=== PATIENT | male | born 1970 | race Caucasian/White ===

== ENCOUNTER 2017-05-18 17:38 | Emergency (ER) | payer MEDICAID ==
[2017-05-18] MEDS ORDERED: diphenhydrAMINE 50 MG/ML SDV IVPUSH ONE (18:06)
[2017-05-18] MEDS ORDERED: Sodium Chloride 0.9% 10 ML Syringe FLUSH PRN (18:06)
[2017-05-18] MEDS ORDERED: Prochlorperazine 10 MG/2 ML SDV IVPUSH ONE (18:06)
--- NOTE | 2017-05-18 18:23 | EDM.PDOC ---
ED HPI GENERAL MEDICAL PROBLEM - General Chief Complaint: Headache Stated Complaint: HEAD PAIN/UNABLE TO WALK Time Seen by Provider: 05/18/17 17:55 Source of Information: Reports: Patient, Family History Limitations: Reports: No Limitations - History of Present Illness INITIAL COMMENTS - FREE TEXT/NARRATIVE: The patient presents with right sided neck and head pain. This started about 1630 today after he got done eating at 1600. He also has burning pain to the right side of his face. He has had headaches like this before but never this bad. He denied nausea, vomiting, numbness or weakness. The patient was unsteady when moving to the bed. He has no fever, chills, cough, congestion or runny nose. He has no chest pain, abdominal pain or shortness of breath. Onset: Gradual Duration: Hour(s): (16:30) Location: Reports: Head, Face, Neck Quality: Reports: Sharp (and burning) Severity: Severe Improves with: Reports: None Worsens with: Reports: None Context: Reports: Activity (He just finished eating) Associated Symptoms: Reports: Headaches. Denies: Chest Pain, Fever/Chills, Nausea/Vomiting, Shortness of Breath Right Headache Pain Score (Numeric/FACES): 6 - Related Data Allergies Allergy/AdvReac Type Severity Reaction Status Date / Time No Known Allergies Allergy Verified 05/18/17 17:54 Home Meds: Home Meds Cyclobenzaprine [Flexeril] 10 mg PO TID PRN #20 tablet 05/18/17 [Rx] Hydrocodone/Acetaminophen [Hydrocodon-Acetaminophen 5-325] 1 - 2 each PO Q6HR PRN #20 tablet 05/18/17 [Rx] ED ROS GENERAL - Review of Systems Review Of Systems: See Below Constitutional: Reports: No Symptoms HEENT: Reports: No Symptoms Respiratory: Reports: No Symptoms Cardiovascular: Reports: No Symptoms Endocrine: Reports: No Symptoms GI/Abdominal: Reports: No Symptoms : Reports: No Symptoms Musculoskeletal: Reports: Neck Pain Skin: Reports: No Symptoms Neurological: Reports: Headache - Physical Exam Exam: See Below Exam Limited By: No Limitations General Appearance: Alert, No Apparent Distress Ears: Normal External Exam Nose: Normal Inspection Head Exam: Atraumatic, Normocephalic Neck: Normal Inspection Respiratory/Chest: No Respiratory Distress, Lungs Clear, Normal Breath Sounds Cardiovascular: Regular Rate, Rhythm, No Edema, No Murmur GI/Abdominal: Soft, Non-Tender, No Organomegaly, No Mass Neuro Exam (Abbreviated): Alert, Oriented, No Motor/Sensory Deficits, Other ( Normal finger to nose) Course - Vital Signs Last Recorded V/S: Last Vital Signs Temp 97.2 F 05/18/17 17:54 Pulse 48 L 05/18/17 17:54 Resp 16 05/18/17 17:54 BP 197/113 H 05/18/17 17:54 Pulse Ox 99 05/18/17 17:54 - Orders/Labs/Meds Orders: Active Orders 24 hr Category Date Time Status Peripheral IV Care [RC] . DIRECTED Care 05/18/17 18:06 Active Head wo Cont [CT] Stat Exams 05/18/17 18:05 Taken Ketorolac [Toradol] Med 05/18/17 19:29 Once 30 mg IVPUSH ONETIME ONE Sodium Chloride 0.9% [Saline Flush] Med 05/18/17 18:06 Active 10 ml FLUSH ASDIRECTED PRN Peripheral IV Insertion Adult [OM.PC] Routine Oth 05/18/17 18:06 Ordered Medication Orders Sodium Chloride (Saline Flush) 10 ml FLUSH ASDIRECTED PRN PRN Reason: Keep Vein Open Last Admin: 05/18/17 18:30 Dose: 10 ml Meds: Medications Generic Name Dose Route Start Last Admin Trade Name Freq PRN Reason Stop Dose Admin Sodium Chloride 10 ml 05/18/17 18:06 05/18/17 18:30 Saline Flush FLUSH 10 ml ASDIRECTED PRN Administration Keep Vein Open Discontinued Medications Generic Name Dose Route Start Last Admin Trade Name Freq PRN Reason Stop Dose Admin Diphenhydramine HCl 50 mg 05/18/17 18:06 05/18/17 18:29 Benadryl IVPUSH 05/18/17 18:07 50 mg ONETIME ONE Administration Hydromorphone HCl 0.5 mg 05/18/17 18:49 05/18/17 18:52 Dilaudid IVPUSH 05/18/17 18:50 0.5 mg ONETIME ONE Administration Hydromorphone HCl Confirm 05/18/17 18:55 05/18/17 18:54 Dilaudid Administered 05/18/17 18:56 Not Given Dose 0.5 mg .ROUTE .STK-MED ONE Prochlorperazine Edisylate 10 mg 05/18/17 18:06 05/18/17 18:29 Compazine IVPUSH 05/18/17 18:07 10 mg ONETIME ONE Administration - Re-Assessments/Exams Free Text/Narrative Re-Assessment/Exam: 05/18/17 18:25 I ordered an IV saline lock, compazine 10mg IV, benadryl 50mg IV and a CT of his head. 05/18/17 19:30 His pain was better until he went to CT and it came back. I ordered some dilaudid 1mg IV and that helped. The CT showed no acute intracranial hemorrhage or mass effect. Right occipital scalp hematoma. I asked the patient about the hematoma and he says he has had that for years. It maybe has gotten a little bigger. That is not where the pain is coming from. It appears to be coming from his neck. I will give him a dose of toradol here and a prescription for hydrocodone and flexeril. Departure - Departure Time of Disposition: 19:35 Disposition: Home, Self-Care 01 Condition: Good Clinical Impression: Tension-type headache - Discharge Information Prescriptions: Hydrocodone/Acetaminophen [Hydrocodon-Acetaminophen 5-325] 1 - 2 each PO Q6HR PRN #20 tablet PRN Reason: Pain Cyclobenzaprine [Flexeril] 10 mg PO TID PRN #20 tablet PRN Reason: Pain Referrals: Marilu Ramesh PA-C [[employer]] - 1 Week Forms: ED Department Discharge Additional Instructions: Take the flexeril and hydrocodone as needed for pain. You may also take an antiinflammatory such as motrin or aleve. Please return if the pain gets worse , if you develop numbness, weakness, nausea or vomiting. - My Orders Last 24 Hours: My Active Orders 05/18/17 18:05 Head wo Cont [CT] Stat 05/18/17 18:06 Peripheral IV Care [RC] . DIRECTED Sodium Chloride 0.9% [Saline Flush] 10 ml FLUSH ASDIRECTED PRN Peripheral IV Insertion Adult [OM.PC] Routine 05/18/17 19:29 Ketorolac [Toradol] 30 mg IVPUSH ONETIME ONE - Assessment/Plan Last 24 Hours: My Active Orders 05/18/17 18:05 Head wo Cont [CT] Stat 05/18/17 18:06 Peripheral IV Care [RC] . DIRECTED Sodium Chloride 0.9% [Saline Flush] 10 ml FLUSH ASDIRECTED PRN Peripheral IV Insertion Adult [OM.PC] Routine 05/18/17 19:29 Ketorolac [Toradol] 30 mg IVPUSH ONETIME ONE
[2017-05-18] MEDS ORDERED: HYDROmorphone 0.5 MG/0.5 ML Syringe IVPUSH ONE (18:49)
[2017-05-18] MEDS ORDERED: HYDROmorphone 0.5 MG/0.5 ML Syringe ONE (18:55)
[2017-05-18] MEDS ORDERED: Ketorolac 30 MG/ML SDV IVPUSH ONE (19:29)
--- NOTE | 2017-05-23 11:27 | CT ---
Head CT Technique: Multiple axial sections through the brain were obtained. Intravenous contrast was not utilized. Comparison: No prior study. Findings: Ventricles along with basal cisterns and sulci over the convexities are within normal limits for the patient's age. No abnormal parenchymal densities are seen. No evidence of intracranial hemorrhage. No midline shift or mass effect is seen. Hematoma seen within the right occipital scalp. No acute calvarial abnormality is seen. Diffuse mucosal thickening is seen within the maxillary and ethmoid sinuses. Air-fluid level is seen within the right maxillary sinus. Impression: 1. There is mucosal thickening within the ethmoid and maxillary sinuses with right sided air fluid level within the maxillary sinus. Uncertain if this is due to acute sinusitis and please correlate with the patient's symptoms. 2. Soft tissue hematoma within the right occipital scalp. 3. No acute intracranial abnormality is seen. Diagnostic code #3 I agree with preliminary report issued by [facility] ([facility] report finalized on 05/18/17, 8:04 PM Central Time)
== END 2017-05-18 19:49 | disposition home or self-care (01) ==
LOC: JD.ED 17:38
DX: G44.209 Tension-type headache, unspecified, not intractable (principal)
CPT/HCPCS: 70450; 96374; 96375; 99284; J0780; J1170; J1200; J1885; J7050

== ENCOUNTER 2017-05-19 19:00 | Emergency (ER) | payer MEDICAID ==
--- NOTE | 2017-05-19 19:17 | EDM.PDOC ---
ED HPI GENERAL MEDICAL PROBLEM - General Chief Complaint: Gastrointestinal Problem Stated Complaint: VOMMITING AND DIZZY UNABLE TO WALK Time Seen by Provider: 05/19/17 19:12 - History of Present Illness INITIAL COMMENTS - FREE TEXT/NARRATIVE: 46-year-old male presents emergency room with left sided leg weakness difficulty speaking nausea vomiting and generally not feeling well. Patient was seen here yesterday he had what seemed like a muscle tension headache this was treated his headache and his neck pain is better. However around 2 AM this morning the patient developed nausea vomiting and just generalized weakness he thinks might be a little worse in his left leg compared to his right leg hands are about the same 80s had some intermittent speech discrepancies and the patient has had some right-sided facial numbness comes and goes. The patient feels generally weak has a hard time walking if he tries to walk he has a tendency to want to fall. - Related Data Allergies Allergy/AdvReac Type Severity Reaction Status Date / Time No Known Allergies Allergy Verified 05/19/17 19:12 Home Meds: Home Meds Cyclobenzaprine [Flexeril] 10 mg PO TID PRN #20 tablet 05/18/17 [Rx] Hydrocodone/Acetaminophen [Hydrocodon-Acetaminophen 5-325] 1 - 2 each PO Q6HR PRN #20 tablet 05/18/17 [Rx] Past Medical History - Past Health History Medical/Surgical History: Denies Medical/Surgical History Psychiatric History: Reports: Addiction Other Psychiatric History: smokes cigarettes Social & Family History - Tobacco Use Smoking Status *Q: Current Every Day Smoker Years of Tobacco use: 30 Packs/Tins Daily: 1 - Caffeine Use Caffeine Use: Reports: Soda - Recreational Drug Use Recreational Drug Use: No ED ROS GENERAL - Review of Systems Review Of Systems: See Below Constitutional: Reports: Malaise, Weakness HEENT: Reports: No Symptoms Respiratory: Reports: No Symptoms Cardiovascular: Reports: No Symptoms GI/Abdominal: Reports: Nausea, Vomiting. Denies: Abdominal Pain, Constipation, Diarrhea : Reports: No Symptoms Musculoskeletal: Reports: Other (Weakness) Neurological: Reports: Dizziness, Weakness Hematologic/Lymphatic: Reports: No Symptoms ED EXAM, GENERAL - Physical Exam Exam: See Below Exam Limited By: No Limitations General Appearance: Alert, No Apparent Distress Eye Exam: Bilateral Eye: Normal Inspection Ears: Normal External Exam, Normal Canal, Hearing Grossly Normal, Normal TMs Nose: Normal Inspection, Normal Mucosa, No Blood Throat/Mouth: Normal Inspection, Normal Lips, Normal Gums, Normal Oropharynx, Normal Voice, No Airway Compromise Head: Atraumatic, Normocephalic Neck: Normal Inspection, Supple, Non-Tender, Full Range of Motion. No: Lymphadenopathy (L), Lymphadenopathy (R) Respiratory/Chest: No Respiratory Distress, Lungs Clear, Normal Breath Sounds Cardiovascular: Normal Peripheral Pulses, Regular Rate, Rhythm, No Edema, No Murmur GI/Abdominal: Normal Bowel Sounds, Soft, Non-Tender Back Exam: Normal Inspection. No: CVA Tenderness (L), CVA Tenderness (R), Vertebral Tenderness Extremities: Normal Inspection, No Pedal Edema Neurological: Other (Muscle testing done in all 4 extremities he is perhaps week but no localizing weakness) Psychiatric: Normal Affect, Normal Mood Lymphatic: No Adenopathy Course - Vital Signs Last Recorded V/S: Last Vital Signs Temp 36.6 C 05/19/17 19:07 Pulse 50 L 05/19/17 20:46 Resp 18 05/19/17 19:07 BP 187/103 H 05/19/17 20:46 Pulse Ox 98 05/19/17 19:07 - Orders/Labs/Meds Orders: Active Orders 24 hr Category Date Time Status EKG Documentation Completion [RC] STAT Care 05/19/17 19:25 Active Chest 1V Frontal [CR] Stat Exams 05/19/17 20:28 Taken Head wo Cont [CT] Stat Exams 05/19/17 19:26 Taken DRUG SCREEN, URINE [URCHEM] Stat Lab 05/19/17 20:25 Uncollected Lactated Ringers [Ringers, Lactated] 1,000 ml Med 05/19/17 21:00 Active IV ASDIRECTED Nitroglycerin [Nitrostat] Med 05/19/17 20:54 Active 0.4 mg SL Q5M PRN Medication Orders Lactated Ringer's (Ringers, Lactated) 1,000 mls @ 125 mls/hr IV ASDIRECTED DANNA Last Admin: 05/19/17 21:12 Dose: 125 mls/hr Nitroglycerin (Nitrostat) 0.4 mg SL Q5M PRN PRN Reason: Chest Pain Labs: Laboratory Tests 05/19/17 05/19/17 05/19/17 Range/Units 19:39 19:39 19:39 WBC 14.79 H (4.23-9.07) K/mm3 RBC 4.97 (4.63-6.08) M/mm3 Hgb 15.6 (13.7-17.5) gm/L Hct 45.5 (40.1-51.0) % MCV 91.5 (79.0-92.2) fl MCH 31.4 (25.7-32.2) pg MCHC 34.3 (32.2-35.5) g/dl RDW Std Deviation 45.9 H (35.1-43.9) fL Plt Count 222 (163-337) K/mm3 MPV 9.2 L (9.4-12.3) fl Neutrophils % (Manual) 89 H (40-60) % Band Neutrophils % 0 (0-10) % Lymphocytes % (Manual) 6 L (20-40) % Atypical Lymphs % 2 % Monocytes % (Manual) 3 (2-10) % Eosinophils % (Manual) 0 L (0.8-7.0) % Basophils % (Manual) 0 L (0.2-1.2) Platelet Estimate Adequate Plt Morphology Comment Normal RBC Morph Comment Normal ESR (0-15) mm/hr PT 11.4 (8.0-13.0) SECONDS INR 1.04 APTT 26 (22-36) SECONDS Sodium 142 (136-145) mEq/L Potassium 4.1 (3.5-5.1) mEq/L Chloride 103 (98-107) mEq/L Carbon Dioxide 29 (21-32) mEq/L Anion Gap 14.1 (5-15) BUN 15 (7-18) mg/dL Creatinine 1.2 (0.7-1.3) mg/dL Est Cr Clr Drug Dosing 72.32 mL/min Estimated GFR (MDRD) > 60 (>60) mL/min BUN/Creatinine Ratio 12.5 L (14-18) Glucose 131 H (74-106) mg/dL Calcium 9.8 (8.5-10.1) mg/dL Total Bilirubin 0.6 (0.2-1.0) mg/dL AST 18 (15-37) U/L ALT 16 (16-63) U/L Alkaline Phosphatase 67 (46-116) U/L Troponin I 0.073 H* (0.00-0.056) ng/mL C-Reactive Protein 0.3 (<1.0) mg/dL Total Protein 7.8 (6.4-8.2) g/dl Albumin 3.8 (3.4-5.0) g/dl Globulin 4.0 gm/dL Albumin/Globulin Ratio 1.0 (1-2) 05/19/17 05/19/17 Range/Units 19:39 21:32 WBC (4.23-9.07) K/mm3 RBC (4.63-6.08) M/mm3 Hgb (13.7-17.5) gm/L Hct (40.1-51.0) % MCV (79.0-92.2) fl MCH (25.7-32.2) pg MCHC (32.2-35.5) g/dl RDW Std Deviation (35.1-43.9) fL Plt Count (163-337) K/mm3 MPV (9.4-12.3) fl Neutrophils % (Manual) (40-60) % Band Neutrophils % (0-10) % Lymphocytes % (Manual) (20-40) % Atypical Lymphs % % Monocytes % (Manual) (2-10) % Eosinophils % (Manual) (0.8-7.0) % Basophils % (Manual) (0.2-1.2) Platelet Estimate Plt Morphology Comment RBC Morph Comment ESR 11 (0-15) mm/hr PT (8.0-13.0) SECONDS INR APTT (22-36) SECONDS Sodium (136-145) mEq/L Potassium (3.5-5.1) mEq/L Chloride (98-107) mEq/L Carbon Dioxide (21-32) mEq/L Anion Gap (5-15) BUN (7-18) mg/dL Creatinine (0.7-1.3) mg/dL Est Cr Clr Drug Dosing mL/min Estimated GFR (MDRD) (>60) mL/min BUN/Creatinine Ratio (14-18) Glucose (74-106) mg/dL Calcium (8.5-10.1) mg/dL Total Bilirubin (0.2-1.0) mg/dL AST (15-37) U/L ALT (16-63) U/L Alkaline Phosphatase (46-116) U/L Troponin I 0.072 H* (0.00-0.056) ng/mL C-Reactive Protein (<1.0) mg/dL Total Protein (6.4-8.2) g/dl Albumin (3.4-5.0) g/dl Globulin gm/dL Albumin/Globulin Ratio (1-2) Meds: Medications Generic Name Dose Route Start Last Admin Trade Name Freq PRN Reason Stop Dose Admin Lactated Ringer's 1,000 mls @ 125 mls/hr 05/19/17 21:00 05/19/17 21:12 Ringers, Lactated IV 125 mls/hr ASDIRECTED DANNA Administration Nitroglycerin 0.4 mg 05/19/17 20:54 Nitrostat SL Q5M PRN Chest Pain Discontinued Medications Generic Name Dose Route Start Last Admin Trade Name Freq PRN Reason Stop Dose Admin Aspirin 324 mg 05/19/17 20:14 05/19/17 20:28 Aspirin PO 05/19/17 20:15 324 mg ONETIME ONE Administration Lactated Ringer's 1,000 mls @ 999 mls/hr 05/19/17 19:27 05/19/17 19:50 Ringers, Lactated IV 05/19/17 20:27 999 mls/hr .BOLUS ONE Administration Metoprolol Tartrate 5 mg 05/19/17 20:29 05/19/17 20:46 Lopressor IVPUSH 05/19/17 20:30 5 mg ONETIME ONE Administration Ondansetron HCl 4 mg 05/19/17 19:38 05/19/17 19:49 Zofran IVPUSH 05/19/17 19:39 4 mg ONETIME ONE Administration - Re-Assessments/Exams Free Text/Narrative Re-Assessment/Exam: 05/19/17 21:44 EKG shows normal sinus rhythm with LVH possible early repolarization pattern no acute ST-T wave changes however he skipped fairly prominent T T waves in V3 V4. Chest x-ray shows no acute changes head CT no acute changes. His troponin is elevated the significance of this is unclear, are upper normal is 0.056 he is at 0.073. Follow-up troponin pending. His blood pressure has come down somewhat. He has intermittent mild left-sided chest discomfort that comes and goes but with talking to him he's had this for quite some time perhaps months. At this point we are a hospital diversion case was discussed with Dr. Mix ER physician at [facility] who would be willing to reevaluate the patient anticipating needing further evaluation and treatment. From a neurologic standpoint he could've had a small stroke onset of symptoms roughly 2 AM this morning. His troponin is elevated this could be from chronic hypertension or acute coronary syndrome. He's had some chest discomfort but this seems to be chronic. 05/19/17 22:01 Patient is doing okay at this time he is pain-free pressure 173/100 second troponin is pending Departure - Departure Time of Disposition: 21:00 Disposition: DC/Tfer to [facility] 02 Clinical Impression: CVA (cerebral vascular accident), Elevated troponin, Hypertension - Discharge Information Referrals: PCP,None [Primary Care Provider] - Forms: ED Department Discharge - My Orders Last 24 Hours: My Active Orders 05/19/17 19:25 EKG Documentation Completion [RC] STAT 05/19/17 19:26 Head wo Cont [CT] Stat 05/19/17 20:25 DRUG SCREEN, URINE [URCHEM] Stat 05/19/17 20:28 Chest 1V Frontal [CR] Stat 05/19/17 20:54 Nitroglycerin [Nitrostat] 0.4 mg SL Q5M PRN 05/19/17 21:00 Lactated Ringers [Ringers, Lactated] 1,000 ml IV ASDIRECTED - Assessment/Plan Last 24 Hours: My Active Orders 05/19/17 19:25 EKG Documentation Completion [RC] STAT 05/19/17 19:26 Head wo Cont [CT] Stat 05/19/17 20:25 DRUG SCREEN, URINE [URCHEM] Stat 05/19/17 20:28 Chest 1V Frontal [CR] Stat 05/19/17 20:54 Nitroglycerin [Nitrostat] 0.4 mg SL Q5M PRN 05/19/17 21:00 Lactated Ringers [Ringers, Lactated] 1,000 ml IV ASDIRECTED
[2017-05-19] MEDS ORDERED: Lactated Ringers 1,000 ML IV ONE (19:27)
[2017-05-19] MEDS ORDERED: Ondansetron 4 MG/2 ML SDV IVPUSH ONE (19:38)
[2017-05-19] MEDS ORDERED: Aspirin 81 MG Tab.Chew PO ONE (20:14)
[2017-05-19] MEDS ORDERED: Metoprolol Tartrate 5 MG/5 ML SDV IVPUSH ONE (20:29)
[2017-05-19] MEDS ORDERED: Nitroglycerin 0.4 MG Tab.SL SL PRN (20:54)
[2017-05-19] MEDS ORDERED: Lactated Ringers 1,000 ML IV SCH (21:00)
--- NOTE | 2017-05-23 16:02 | CR ---
Chest: Portable view of the chest was obtained. Comparison: No prior chest x-ray. Heart size and mediastinum are normal. Lungs are clear. Bony structures are grossly intact. Slight scarring believed to be present behind the left heart. Mild scoliosis is noted. Impression: 1. Incidental findings. Nothing acute is appreciated. Diagnostic code #2
--- NOTE | 2017-05-23 16:02 | CT ---
Head CT Technique: Multiple axial sections through the brain were obtained. Intravenous contrast was not utilized. Comparison: Prior head CT study performed on 05/18/17. Stable hematoma identified within the right occipital scalp. Ventricles along with basal cisterns and sulci over the convexities are within normal limits for the patient's age. No abnormal parenchymal densities are seen. No evidence of intracranial hemorrhage. No midline shift or mass effect is seen. Bone window settings were reviewed which show the visualized sinuses to contain mucosal thickening within the ethmoid sinuses. Very small air-fluid level noted within the right maxillary sinus. Mucosal thickening seen within left side of the sphenoid sinus. Impression: 1. Sinus findings. Uncertain if this is due to acute sinusitis and as mentioned previously please correlate. 2. Stable soft tissue hematoma within the right occipital scalp. 3. No acute intracranial abnormality is identified. Diagnostic code #3 I agree with preliminary report issued by [facility] ([facility] report finalized on 05/19/17, 9:28 PM Central Time)
== END 2017-05-19 22:11 ==
LOC: JD.ED 19:00
DX: I63.9 Cerebral infarction, unspecified (principal); I10 Essential (primary) hypertension; R79.89 Other specified abnormal findings of blood chemistry; F17.210 Nicotine dependence, cigarettes, uncomplicated
CPT/HCPCS: 36415; 70450; 71010; 80053; 84484; 85025; 85610; 85652; 85730; 86140; 93005; 96361; 96374; 96375; 99285; A9270; J2405; J7120; 93010; J3490

== ENCOUNTER 2017-07-30 15:44 | Emergency (ER) | payer MEDICAID ==
--- NOTE | 2017-07-30 15:55 | EDM.PDOC ---
ED HPI GENERAL MEDICAL PROBLEM - General Chief Complaint: Head Injury Stated Complaint: [facility] Time Seen by Provider: 07/30/17 15:45 Source of Information: Reports: Patient - History of Present Illness INITIAL COMMENTS - FREE TEXT/NARRATIVE: Patient was brought here by ambulance after a fall at the [facility]. Trauma code was called and I did see the patient at that time. Really no history, unsure if he had his head. Patient is not answering questions. He is responding to pain and mumbling words but not making sense. GCS 9. Patient reportedly has a history of brain aneurysm and repair. Unclear any other medical history. His is reportedly on her way. Patient's has now arrived and provide more history. Patient reportedly had a stroke in April 2017 and at that time they did find an aneurysm which was stented. Patient's reports that he had really no speech delay but was overall weak and had difficulty with walking and balance. His weakness was not localized to one side since stroke. Apparently he was at the [facility] walking which she has been doing over the past few days to try to regain his strength. Patient's had had their child in the pool. All 3 of them were in the family locker room when patient appeared to pass out prior to falling, hit the front of his head and then landed on the floor and hit the back of his head. Patient's states that he did tense up and shake his eyes rolled back in his head and then he lost consciousness. Patient states that this only lasted a short period approximately 1-2 minutes and then patient awoke. He was talking and knew his name and birthday at that time. - Related Data Allergies Allergy/AdvReac Type Severity Reaction Status Date / Time No Known Allergies Allergy Unverified 07/30/17 15:57 Home Meds: Home Meds Aspirin 81 mg PO DAILY 07/30/17 [History] Cholecalciferol (Vitamin D3) [Vitamin D3] 2,000 unit PO DAILY 07/30/17 [History] Citalopram [Citalopram HBr] 20 mg PO DAILY 07/30/17 [History] Docusate Sodium [Colace] 100 mg PO BID 07/30/17 [History] Hydrochlorothiazide 12.5 mg PO DAILY 07/30/17 [History] Lisinopril 10 mg PO DAILY 07/30/17 [History] Melatonin 3 mg PO BEDTIME 07/30/17 [History] Multivitamin [One Daily] 1 each PO DAILY 07/30/17 [History] Ticagrelor [Brilinta] 90 mg PO BID 07/30/17 [History] atorvaSTATin Calcium [Atorvastatin Calcium] 20 mg PO DAILY 07/30/17 [History] Past Medical History - Past Health History Medical/Surgical History: Denies Medical/Surgical History Neurological History: Reports: Other (See Below) Other Neuro History: tension headache Psychiatric History: Reports: Addiction Other Psychiatric History: smokes cigarettes Social & Family History - Family History Family Medical History: Noncontributory - Tobacco Use Smoking Status *Q: Current Every Day Smoker Years of Tobacco use: 30 Packs/Tins Daily: 1 - Caffeine Use Caffeine Use: Reports: Soda - Recreational Drug Use Recreational Drug Use: No ED ROS GENERAL - Review of Systems Review Of Systems: See Below (Unable to obtain review of systems due to patient not responding to questions.) ED EXAM, HEAD INJURY - Physical Exam Exam: See Below Exam Limited By: Altered Mental Status General Appearance: Other (Patient is quite thin, his eyes are closed and he is mumbling words but not making sense.) Head: Normocephalic, Other (Mass to the right posterior part of patient's head, this does appear to be more of a cyst.) Eyes: Bilateral Eye: PERRL Ears: Normal External Exam, Normal Canal, Normal TMs Throat/Mouth: Normal Inspection, Normal Oropharynx Respiratory: No Respiratory Distress, Lungs Clear, Normal Breath Sounds Cardiovascular: Normal Peripheral Pulses, Regular Rate, Rhythm, No Murmur Extremities: Normal Capillary Refill Neurologic: Other (Patient conscious but not coherent. He does not answer questions. Withdraws to pain.). No: Oriented x 3, Facial Droop Skin: Normal Color, Warm/Dry - Rochelle Coma Score Best Eye Response ([place]): (2) Open to Pain Best Verbal Response ([place]): (3) Inappropriate Words Best Motor Response ([place]): (4) Withdraws to Pain [place]helle Total: 9 Course - Vital Signs Last Recorded V/S: Last Vital Signs Temp 97.0 F 07/30/17 15:44 Pulse 67 07/30/17 15:44 Resp 16 07/30/17 15:44 BP 138/76 07/30/17 15:44 Pulse Ox 97 07/30/17 15:44 - Orders/Labs/Meds Orders: Active Orders 24 hr Category Date Time Status EKG 12 Lead [EKG Documentation Completion] [RC] STAT Care 07/30/17 15:51 Active DRUG SCREEN, URINE [URCHEM] Stat Lab 07/30/17 15:51 Uncollected UA W/MICROSCOPIC [URIN] Stat Lab 07/30/17 15:52 Uncollected Sodium Chloride 0.9% [Normal Saline] 1,000 ml Med 07/30/17 16:40 Active IV ONETIME Medication Orders Sodium Chloride (Normal Saline) 1,000 mls @ 250 mls/hr IV ONETIME ONE Stop: 07/30/17 20:39 Last Admin: 07/30/17 16:59 Dose: 100 mls/hr Labs: Laboratory Tests 07/30/17 07/30/17 07/30/17 Range/Units 16:10 16:10 16:10 WBC 7.61 (4.23-9.07) K/mm3 RBC 4.12 L (4.63-6.08) M/mm3 Hgb 12.9 L (13.7-17.5) gm/L Hct 38.4 L (40.1-51.0) % MCV 93.2 H (79.0-92.2) fl MCH 31.3 (25.7-32.2) pg MCHC 33.6 (32.2-35.5) g/dl RDW Std Deviation 45.1 H (35.1-43.9) fL Plt Count 248 (163-337) K/mm3 MPV 8.7 L (9.4-12.3) fl Neutrophils % (Manual) 64 H (40-60) % Band Neutrophils % 0 (0-10) % Lymphocytes % (Manual) 22 (20-40) % Atypical Lymphs % 3 % Monocytes % (Manual) 5 (2-10) % Eosinophils % (Manual) 6 (0.8-7.0) % Basophils % (Manual) 0 L (0.2-1.2) Platelet Estimate Adequate Plt Morphology Comment Normal RBC Morph Comment Normal Sodium 141 (136-145) mEq/L Potassium 3.0 L (3.5-5.1) mEq/L Chloride 104 (98-107) mEq/L Carbon Dioxide 28 (21-32) mEq/L Anion Gap 12.0 (5-15) BUN 20 H (7-18) mg/dL Creatinine 1.2 (0.7-1.3) mg/dL Est Cr Clr Drug Dosing 74.02 mL/min Estimated GFR (MDRD) > 60 (>60) mL/min BUN/Creatinine Ratio 16.7 (14-18) Glucose 105 (74-106) mg/dL Calcium 9.2 (8.5-10.1) mg/dL Total Bilirubin 0.4 (0.2-1.0) mg/dL AST 31 (15-37) U/L ALT 29 (16-63) U/L Alkaline Phosphatase 62 (46-116) U/L Troponin I < 0.017 (0.00-0.056) ng/mL C-Reactive Protein < 0.2 (<1.0) mg/dL Total Protein 7.3 (6.4-8.2) g/dl Albumin 3.6 (3.4-5.0) g/dl Globulin 3.7 gm/dL Albumin/Globulin Ratio 1.0 (1-2) TSH 3rd Generation 2.567 (0.358-3.74) uIU/mL Salicylates 1.2 L (2.8-20) mg/dL Acetaminophen 0 L (10-30) ug/mL Ethyl Alcohol 0.00 (0.00) gm% Meds: Medications Generic Name Dose Route Start Last Admin Trade Name Freq PRN Reason Stop Dose Admin Sodium Chloride 1,000 mls @ 250 mls/hr 07/30/17 16:40 07/30/17 16:59 Normal Saline IV 07/30/17 20:39 100 mls/hr ONETIME ONE Administration Discontinued Medications Generic Name Dose Route Start Last Admin Trade Name Freq PRN Reason Stop Dose Admin Fentanyl Confirm 07/30/17 16:57 07/30/17 16:57 Sublimaze Administered 07/30/17 16:58 Not Given Dose 100 mcg .ROUTE .STK-MED ONE Fentanyl 50 mcg 07/30/17 16:54 07/30/17 16:56 Sublimaze IVPUSH 07/30/17 16:55 50 mcg ONETIME ONE Administration Hydromorphone HCl 0.5 mg 07/30/17 17:04 07/30/17 17:13 Dilaudid IVPUSH 07/30/17 17:05 0.5 mg ONETIME ONE Administration Hydromorphone HCl Confirm 07/30/17 17:12 07/30/17 17:14 Dilaudid Administered 07/30/17 17:13 Not Given Dose 0.5 mg .ROUTE .STK-MED ONE Sodium Chloride Confirm 07/30/17 16:47 07/30/17 16:52 Normal Saline Administered 07/30/17 16:48 Not Given Dose 1,000 mls @ as directed .ROUTE .STK-MED ONE Levetiracetam 1,000 mg/ Sodium 110 mls @ 400 mls/hr 07/30/17 17:06 07/30/17 17:21 Chloride IV 07/30/17 17:20 400 mls/hr ONETIME ONE Administration Labetalol HCl 10 mg 07/30/17 16:50 07/30/17 16:58 Normodyne IVPUSH 07/30/17 16:51 Not Given ONETIME ONE Protocol Labetalol HCl Confirm 07/30/17 16:56 07/30/17 16:53 Normodyne Administered 07/30/17 16:57 Not Given Dose 100 mg .ROUTE .STK-MED ONE Ondansetron HCl 4 mg 07/30/17 16:40 07/30/17 16:52 Zofran IVPUSH 07/30/17 16:41 4 mg ONETIME ONE Administration Ondansetron HCl Confirm 07/30/17 16:47 07/30/17 16:53 Zofran Administered 07/30/17 16:48 Not Given Dose 4 mg .ROUTE .STK-MED ONE - Re-Assessments/Exams Free Text/Narrative Re-Assessment/Exam: GCS9 07/30/17 15:55 Upon reevaluation when he returned from CT patient is coherent and answering questions. He is complaining of right-sided head pain, NO neck pain. Strength equal bilaterally to all extremities. Upon initial review of the CT patient does have right-sided subdural hemorrhage , this was upon initial review with myself and Dr. Landin. As official report is pending we will discuss with neurosurgery to arrange for possible transfer. Unable to fly to [place] due to weather so will call [facility]. 07/30/17 16:37 Discussed with , neurology and [facility] accepts care the patient. He will be transferred and arrived through the ER. Currently having difficulty with air transport due to weather. Patient was given 50 g of fentanyl and 0.5 mg Dilaudid for pain. Labetalol was ordered 10 mg every 15 minutes with a goal blood pressure less than 140 systolic. Per minute a neurosurgeon will give 1 g Keppra. 07/30/17 17:[address] report back. Cervical spine demonstrates slight degenerative changes, mild scoliosis but nothing acute. Collar will be removed. CT of the head demonstrates subdural hematoma measuring 8.9 mm with a 1.1 cm midline shift. 07/30/17 17:11 [facility] is able to fly, will transfer him to [facility]. He will arrive to the emergency entrance and be admitted to neurosurgery. 07/30/17 17:13 07/30/17 17:25 Departure - Departure Time of Disposition: 17:27 Disposition: DC/Tfer to [facility] 02 Condition: Fair Clinical Impression: Subdural hemorrhage - Discharge Information Referrals: Conrad Romero MD [Primary Care Provider] - Forms: ED Department Discharge - My Orders Last 24 Hours: My Active Orders 07/30/17 15:51 EKG 12 Lead [EKG Documentation Completion] [RC] STAT DRUG SCREEN, URINE [URCHEM] Stat 07/30/17 15:52 UA W/MICROSCOPIC [URIN] Stat 07/30/17 16:40 Sodium Chloride 0.9% [Normal Saline] 1,000 ml IV ONETIME - Assessment/Plan Last 24 Hours: My Active Orders 07/30/17 15:51 EKG 12 Lead [EKG Documentation Completion] [RC] STAT DRUG SCREEN, URINE [URCHEM] Stat 07/30/17 15:52 UA W/MICROSCOPIC [URIN] Stat 07/30/17 16:40 Sodium Chloride 0.9% [Normal Saline] 1,000 ml IV ONETIME
[2017-07-30] MEDS ORDERED: Sodium Chloride 0.9% 1,000 ML IV ONE (16:40)
[2017-07-30] MEDS ORDERED: Ondansetron 4 MG/2 ML SDV IVPUSH ONE (16:40)
[2017-07-30 16:47] LABS: ACETAMINOPHEN 0 ug/mL (10-30)
[2017-07-30] MEDS ORDERED: Sodium Chloride 0.9% 1,000 ML ONE (16:47)
[2017-07-30] MEDS ORDERED: Ondansetron 4 MG/2 ML SDV ONE (16:47)
[2017-07-30] MEDS ORDERED: Labetalol 100 MG/20 ML MDV IVPUSH ONE (16:50)
--- NOTE | 2017-07-30 16:50 | CT ---
CT cervical spine Technique: Multiple axial sections were obtained from above C1 inferiorly to the top of T2. Reconstructed sagittal and coronal images were reviewed. Comparison: No previous intracranial imaging. Findings: Posterior skull base is intact. Minimal degenerative spurring is noted between the dens and anterior arch of C1. Vertebral body heights and disc spaces are maintained. Vertebral bodies and posterior arches are intact with no fracture seen. No bony central or bony neural foraminal stenosis is seen. No abnormal subluxation is seen on the reconstructed sagittal images. Mild scoliosis is noted. Impression: 1. Slight degenerative spurring between the dens and anterior arch of C1. 2. Mild scoliosis. 3. Nothing acute is seen on CT study of the cervical spine. Diagnostic code #2
--- NOTE | 2017-07-30 16:50 | CT ---
Head CT Technique: Multiple axial sections through the brain were obtained. Intravenous contrast was not utilized. Comparison: Prior head CT study of 05/19/17. Findings: Small subdural hematoma is seen on the right side. Subarachnoid blood is also noted within the right sylvian fissure and within the suprasellar cistern as well as extending into a portion of the left sylvian fissure. Thickness of the subdural hematoma is approximately 8.9 mm. Midline shift is seen by about 1.1 cm. Scalp hematoma is seen posteriorly measuring about 2.8 cm in size. Mucosal thickening is noted within the maxillary, sphenoid and ethmoid sinuses frontal sinus also shows mucosal thickening. Sinus disease has increased in severity from previous exam. No acute calvarial abnormality is seen. Impression: 1. Right-sided subdural hematoma as well as subarachnoid hemorrhage as noted above. 2. Scalp hematoma is seen posteriorly. 3. Midline shift of about 1.1 cm to the left side. 4. Sinus disease increased in severity from previous exam. Diagnostic code #5
[2017-07-30] MEDS ORDERED: fentaNYL 100 MCG/2 ML SDV IVPUSH ONE (16:54)
[2017-07-30] MEDS ORDERED: Labetalol 100 MG/20 ML MDV ONE (16:56)
[2017-07-30] MEDS ORDERED: fentaNYL 100 MCG/2 ML SDV ONE (16:57)
[2017-07-30] MEDS ORDERED: HYDROmorphone 0.5 MG/0.5 ML Syringe IVPUSH ONE (17:04)
[2017-07-30] MEDS ORDERED: levETIRAcetam 1,000 MG in Sodium Chloride 0.9% 100 ML IV ONE (17:06)
[2017-07-30] MEDS ORDERED: HYDROmorphone 0.5 MG/0.5 ML Syringe ONE (17:12)
== END 2017-07-30 17:57 ==
LOC: JD.ED 15:44
DX: S06.5X9A Traumatic subdural hemorrhage with loss of consciousness of unspecified duration, initial encounter (principal); F17.210 Nicotine dependence, cigarettes, uncomplicated; Z79.82 Long term (current) use of aspirin; Z79.899 Other long term (current) drug therapy; W01.198A Fall on same level from slipping, tripping and stumbling with subsequent striking against other object, initial encounter; Y92.838 Other recreation area as the place of occurrence of the external cause
CPT/HCPCS: 36415; 70450; 72125; 80053; 84443; 84484; 85025; 86140; 93005; 96361; 96365; 96375; 99291; 99292; G0480; J1170; J1953; J2405; J3010; J7030; J7040

== ENCOUNTER 2018-03-12 19:49 | Emergency (ER) | payer MEDICAID ==
[2018-03-12] MEDS ORDERED: Sodium Chloride 0.9% 10 ML Syringe FLUSH PRN (20:16)
--- NOTE | 2018-03-12 20:47 | EDM.PDOC ---
ED HPI GENERAL MEDICAL PROBLEM - General Chief Complaint: Neurological Problem Stated Complaint: BALANCE PROBLEM Time Seen by Provider: 03/12/18 20:03 Source of Information: Reports: Patient, RN Notes Reviewed - History of Present Illness INITIAL COMMENTS - FREE TEXT/NARRATIVE: 47-year-old male has been brought in by with concern about left leg weakness. His history is somewhat complicated in that he did suffer a CVA, details unknown to me at this time back in April about 10 months ago. Then he had what sounds like subdural hemorrhage, some type of intracerebral hematoma in July of this year about 7 months ago. He did require surgical evacuation for that. There has been slow gradual recovery, he still is at a rehabilitation hospital in [place]. His picked him up this past afternoon about 5 or 6 hours ago to bring him home for the rest of today planning to bring him back after an appointment tomorrow morning. Initially his stated his left leg has been more weak since morning but she did not pick him up until 2:30 this afternoon and staff at the rehabilitation center did release him at that time without apparent concern. His states after the car ride home he seemed to be worse. She states he can normally ambulate with a cane but now this evening difficulty ambulating even with a walker. He has had residual left upper and left lower extremity weakness since those prior to CVAs. He has no headache nausea or vomiting. No cough fever or chills. Chest or abdominal pain. Bilateral Leg Pain Score (Numeric/FACES): 2 - Related Data Allergies Allergy/AdvReac Type Severity Reaction Status Date / Time No Known Allergies Allergy Unverified 07/30/17 15:57 Home Meds: Home Meds Aspirin 81 mg PO DAILY 07/30/17 [History] Cholecalciferol (Vitamin D3) [Vitamin D3] 2,000 unit PO DAILY 07/30/17 [History] Citalopram [Citalopram HBr] 20 mg PO DAILY 07/30/17 [History] Docusate Sodium [Colace] 100 mg PO BID PRN 07/30/17 [History] Lisinopril 10 mg PO DAILY 07/30/17 [History] Multivitamin [One Daily] 1 each PO DAILY 07/30/17 [History] atorvaSTATin Calcium [Atorvastatin Calcium] 20 mg PO DAILY 07/30/17 [History] hydroCHLOROthiazide [Hydrochlorothiazide] 12.5 mg PO DAILY 07/30/17 [History] Phenytoin Sodium Extended [Dilantin] 200 mg PO DAILY 03/12/18 [History] Past Medical History - Past Health History Medical/Surgical History: Denies Medical/Surgical History Cardiovascular History: Reports: Hypertension Musculoskeletal History: Reports: Back Pain, Chronic Neurological History: Reports: CVA, Seizure, Other (See Below) Other Neuro History: tension headache Psychiatric History: Reports: Addiction Other Psychiatric History: smokes cigarettes Social & Family History - Family History Family Medical History: Noncontributory - Tobacco Use Smoking Status *Q: Current Every Day Smoker Years of Tobacco use: 30 Packs/Tins Daily: 0.2 - Caffeine Use Caffeine Use: Reports: None - Recreational Drug Use Recreational Drug Use: No ED ROS GENERAL - Review of Systems Review Of Systems: See Below Constitutional: Denies: Fever, Chills, Diaphoresis HEENT: Denies: Sinus Problem, Throat Pain, Vertigo, Vision Change Respiratory: Denies: Shortness of Breath, Pleuritic Chest Pain, Cough Cardiovascular: Denies: Chest Pain GI/Abdominal: Denies: Abdominal Pain, Nausea, Vomiting Musculoskeletal: Denies: Back Pain, Leg Pain Skin: Denies: Rash Neurological: Reports: Numbness (chronic LLE). Denies: Dizziness, Headache ED EXAM, NEURO - Physical Exam Exam: See Below General Appearance: Alert, No Apparent Distress Eye Exam: Bilateral Eye: PERRL Throat/Mouth: Normal Inspection Head Exam: Other (Large surgical scar visible right parietal scalp) Neck: Supple Respiratory/Chest: No Respiratory Distress, Lungs Clear, Normal Breath Sounds Cardiovascular: Tachycardia GI/Abdominal: Soft, Non-Tender Neurological: Alert, Other (Moderate weakness left hand and upper extremity, moderate weakness left lower extremity, able to lift his left leg off of the clot but unable to maintain for more than 5-10 seconds. Sensation to touch intact distal left upper and lower extremities.) Back Exam: No: CVA Tenderness (L), CVA Tenderness (R) Extremities: No: Pedal Edema, Leg Pain Skin Exam: Warm, Dry, Normal Color EKG INTERPRETATION EKG Date: 03/12/18 Rhythm: NSR [place]: Normal P-Wave: Present QRS: Normal ST-T: Normal Course - Vital Signs Last Recorded V/S: Last Vital Signs Temp 100.1 F 03/12/18 22:39 Pulse 111 H 03/12/18 19:59 Resp 20 03/12/18 19:59 BP 133/100 H 03/12/18 19:59 Pulse Ox 97 03/12/18 19:59 - Orders/Labs/Meds Labs: Laboratory Tests 03/12/18 03/12/18 03/12/18 Range/Units 20:35 20:35 22:31 WBC 8.45 (4.23-9.07) K/mm3 RBC 4.73 (4.63-6.08) M/mm3 Hgb 15.6 (13.7-17.5) gm/L Hct 46.3 (40.1-51.0) % MCV 97.9 H (79.0-92.2) fl MCH 33.0 H (25.7-32.2) pg MCHC 33.7 (32.2-35.5) g/dl RDW Std Deviation 45.8 H (35.1-43.9) fL Plt Count 212 (163-337) K/mm3 MPV 9.1 L (9.4-12.3) fl Neut % (Auto) 70.9 H (34.0-67.9) % Lymph % (Auto) 13.7 L (21.8-53.1) % [place] % (Auto) 11.4 (5.3-12.2) % Eos % (Auto) 3.7 (0.8-7.0) Baso % (Auto) 0.2 (0.1-1.2) % Neut # (Auto) 5.99 H (1.78-5.38) K/mm3 Lymph # (Auto) 1.16 L (1.32-3.57) K/mm3 [place] # (Auto) 0.96 H (0.30-0.82) K/mm3 Eos # (Auto) 0.31 (0.04-0.54) K/mm3 Baso # (Auto) 0.02 (0.01-0.08) K/mm3 Sodium 139 (136-145) mEq/L Potassium 3.6 (3.5-5.1) mEq/L Chloride 102 (98-107) mEq/L Carbon Dioxide 31 (21-32) mEq/L Anion Gap 9.6 (5-15) BUN 14 (7-18) mg/dL Creatinine 1.2 (0.7-1.3) mg/dL Est Cr Clr Drug Dosing 70.08 mL/min Estimated GFR (MDRD) > 60 (>60) mL/min BUN/Creatinine Ratio 11.7 L (14-18) Glucose 123 H (74-106) mg/dL Calcium 9.4 (8.5-10.1) mg/dL Total Bilirubin 0.2 (0.2-1.0) mg/dL AST 19 (15-37) U/L ALT 31 (16-63) U/L Alkaline Phosphatase 140 H (46-116) U/L Total Protein 8.0 (6.4-8.2) g/dl Albumin 3.7 (3.4-5.0) g/dl Globulin 4.3 gm/dL Albumin/Globulin Ratio 0.9 L (1-2) Urine Color Yellow (Yellow) Urine Appearance Slt cloudy H (Clear) Urine pH 7.5 (5.0-8.0) Ur Specific [place] 1.020 (1.005-1.030) Urine Protein Trace H (Negative) Urine Glucose (UA) Negative (Negative) Urine Ketones Negative (Negative) Urine Occult Blood 2+ H (Negative) Urine Nitrite Negative (Negative) Urine Bilirubin Negative (Negative) Urine Urobilinogen 0.2 (0.2-1.0) Ur Leukocyte Esterase Negative (Negative) Urine RBC 40-50 H (0-5) /hpf Urine WBC 0-5 (0-5) /hpf Ur Epithelial Cells 0-5 (0-5) /hpf Urine Bacteria Few (FEW) /hpf Urine Mucus Few (FEW) /hpf Phenytoin 12.6 (10.0-20.0) ug/mL Meds: Medications Discontinued Medications Generic Name Dose Route Start Last Admin Trade Name Freq PRN Reason Stop Dose Admin Acetaminophen 975 mg 03/12/18 22:34 03/12/18 22:39 Tylenol PO 03/12/18 22:35 975 mg NOW ONE Administration Sodium Chloride 500 mls @ 999 mls/hr 03/12/18 20:51 03/12/18 21:03 Normal Saline IV 03/12/18 21:21 999 mls/hr .BOLUS ONE Administration Sodium Chloride 10 ml 03/12/18 20:16 03/12/18 21:03 Saline Flush FLUSH 10 ml ASDIRECTED PRN Administration Keep Vein Open - Re-Assessments/Exams Free Text/Narrative Re-Assessment/Exam: 03/12/18 22:00. Head CT did not show acute findings but did show evidence of prior neurosurgery associated with history of prior subdural hemorrhage. See radiology report for details. White blood count, chemistries did come back normal. Still awaiting UA. 03/12/18 23:05. UA did show some mild hematuria, no evidence for infection, urine noted to be quite concentrated. We have given 1 L of normal saline. He feels better. He does continue to run low-grade fever. We have given Tylenol 975 by mouth. His mentioned that he has had some nasal congestion and coughing for the last few days, chest x-ray is clear. We did have him get up with a walker, he was able to stand and bear weight but did not feel comfortable attempting to walk on his own at this time. I was planning to call his rehabilitation facility to discuss further course of action but then was told that he and his decided they want to go home, they feel safe to do that. They have a handicapped accessible home or apartment. She has had him home previously and is comfortable with transfers and keeping him safe. Discharge instructions as documented. Departure - Departure Time of Disposition: 22:59 Disposition: Home, Self-Care 01 Condition: Fair Clinical Impression: Febrile illness, Dehydration, History of CVA (cerebrovascular accident) - Discharge Information Instructions: Dehydration, Adult, [id number], Fever, Adult, [id number] Referrals: Augustin Deng Jr, MD [Primary Care Provider] - Forms: ED Department Discharge Additional Instructions: Drink plenty of water to maintain hydration, you have been given 1 L of IV fluid while here in the ED and also Tylenol 975 mg orally. Use wheelchair to keep safe from falling. You may continue Tylenol every 6-8 hours if needed for further fever. See physician tomorrow if possible when you return to your rehabilitation facility. Return to ED as needed if symptoms worsening in any way.
[2018-03-12] MEDS ORDERED: Sodium Chloride 0.9% 500 ML IV ONE (20:51)
[2018-03-12] MEDS ORDERED: Acetaminophen 325 MG Tab PO ONE (22:34)
--- NOTE | 2018-03-13 07:12 | CR ---
Chest: Portable view of the chest was obtained. Comparison: Prior chest x-ray of 05/19/17. Heart size and mediastinum are normal. Lungs are clear. Bony structures are grossly intact. Impression: 1. Nothing acute is appreciated on portable chest x-ray. Diagnostic code #1
--- NOTE | 2018-03-13 08:06 | CT ---
Head CT Technique: Multiple axial sections through the brain were obtained. Intravenous contrast was not utilized. Comparison: Prior head CT study of 07/30/17. Findings: Low density encephalomalacia is seen within the right temporal and frontal region with small amount of encephalomalacia also seen within the right parietal region. Previous right-sided craniotomy is noted. Ex vacuole enlargement of the ventricular system is seen. No acute intracranial hemorrhage is seen. Mild mucosal thickening is seen within the paranasal sinuses. Stent noted within the left carotid siphon which is an interval change from previous exam. Stable scalp lesion seen posteriorly on the right side which is incidental. Impression: 1. Areas of encephalomalacia as noted above. Prior right-sided craniotomy. 2. No acute intracranial abnormality is definitely appreciated. Diagnostic code #3 I agree with preliminary report from [facility], finalized on 03/12/18, 10:20 PM Central Time
== END 2018-03-12 23:05 | disposition home or self-care (01) ==
LOC: SUPCPDRO 19:49 → JD.ED 19:49
DX: E86.0 Dehydration (principal); R50.9 Fever, unspecified; I10 Essential (primary) hypertension; F17.210 Nicotine dependence, cigarettes, uncomplicated; Z79.82 Long term (current) use of aspirin; Z79.899 Other long term (current) drug therapy; Z86.73 Personal history of transient ischemic attack (TIA), and cerebral infarction without residual deficits
CPT/HCPCS: 36415; 70450; 71045; 80053; 80185; 81001; 85025; 93005; 99285; A9270; J7040; J7050; 93010; 99284-25

== ENCOUNTER 2019-06-25 13:02 | Emergency (ER) | payer MEDICAID ==
[2019-06-25] MEDS ORDERED: Sodium Chloride 0.9% 10 ML Syringe FLUSH PRN (13:27)
--- NOTE | 2019-06-25 14:14 | CT ---
Head CT Technique: Multiple axial sections were obtained through the brain. Intravenous contrast was not utilized. Comparison: Previous head CT exam of 03/12/18. Findings: Previous right-sided craniotomy is noted. Mild encephalomalacia is seen in the area of the craniotomies. Ventricles are mildly dilated. Findings are stable from previous exam. No other abnormal parenchymal densities are seen. No evidence of acute intracranial hemorrhage. No midline shift or mass effect is seen. Bone window settings were reviewed which show chronic areas of mucosal thickening within the ethmoid sinuses and with the inferior left mastoid sinus. Stent is noted within the left carotid siphon Impression: 1. Previous craniotomy with associated areas of encephalomalacia. 2. Central atrophy. 3. Chronic sinus findings. 4. No acute intracranial abnormality is identified. Diagnostic code #2 This report was dictated in [place] Standard Time
--- NOTE | 2019-06-25 15:48 | EDM.PDOC ---
ED HPI GENERAL MEDICAL PROBLEM - General Chief Complaint: Neurological Problem Stated Complaint: SHOOTING HEAD PAIN Time Seen by Provider: 06/25/19 13:11 Source of Information: Reports: Patient, Family History Limitations: Reports: No Limitations - History of Present Illness INITIAL COMMENTS - FREE TEXT/NARRATIVE: The patient presents with a headache. The pain starts on the right side and goes to the top of the head. He has a history of an aneurysm and strokes. He had a hemorrhagic stroke at one time. He has no new neurologic symptoms such as numbness, weakness, vision changes or dizziness. He has no fever, chills, cough, chest pain, shortness of breath, abdominal pain, nausea or vomiting. This has been going on for about a week. He was sent to [place] and had interventions done there. He is not currently seeing any neurologists. He does see Dr Blackwood in our clinic. Onset: Gradual Duration: Week(s): Location: Reports: Head Quality: Reports: Sharp Severity: Moderate Improves with: Reports: None Worsens with: Reports: None Associated Symptoms: Reports: Headaches. Denies: Chest Pain, Cough, Fever/ Chills, Nausea/Vomiting, Shortness of Breath Right Head Pain Score (Numeric/FACES): 4 - Related Data Allergies Allergy/AdvReac Type Severity Reaction Status Date / Time Anesthetics - Amide Type Allergy Seizure Verified 06/25/19 13:14 Anesthetics - Bernie Type- Allergy Seizure Verified 06/25/19 13:14 Parabens bee venom protein (honey bee) Allergy Airway Verified 06/25/19 13:14 Tightness Home Meds: Home Meds Aspirin 81 mg PO DAILY 07/30/17 [History] Docusate Sodium [Colace] 100 mg PO BID PRN 07/30/17 [History] Lisinopril 10 mg PO DAILY 07/30/17 [History] Multivitamin [One Daily] 1 each PO DAILY 07/30/17 [History] atorvaSTATin Calcium [Atorvastatin Calcium] 20 mg PO DAILY 07/30/17 [History] hydroCHLOROthiazide [Hydrochlorothiazide] 12.5 mg PO DAILY 07/30/17 [History] Phenytoin Sodium Extended [Dilantin] 200 mg PO DAILY 03/12/18 [History] Hydrocodone/Acetaminophen [Hydrocodon-Acetaminophen 5-325] 1 - 2 each PO Q6HR PRN #20 tablet 06/25/19 [Rx] Mirtazapine 7.5 mg PO BEDTIME 06/25/19 [History] Past Medical History - Past Health History Medical/Surgical History: Denies Medical/Surgical History HEENT History: Reports: Impaired Vision Cardiovascular History: Reports: Aneurysm, Hypertension Musculoskeletal History: Reports: Back Pain, Chronic Neurological History: Reports: Brain Injury, CVA, Seizure, Other (See Below) Other Neuro History: tension headache, TBI Psychiatric History: Reports: Addiction, Depression Other Psychiatric History: smokes cigarettes Dermatologic History: Reports: Eczema, Other (See Below) Other Dermatologic History: dermatitis - Past Surgical History HEENT Surgical History: Reports: Oral Surgery Neurological Surgical History: Reports: Other (See Below) Other Neurological Surgeries/Procedures: brain sx for stent placement and hemmorhagic stroke Social & Family History - Family History Family Medical History: Noncontributory - Tobacco Use Smoking Status *Q: Current Every Day Smoker Years of Tobacco use: 30 Packs/Tins Daily: 0.2 - Caffeine Use Caffeine Use: Reports: Soda - Recreational Drug Use Recreational Drug Use: No ED ROS GENERAL - Review of Systems Review Of Systems: See Below Constitutional: Reports: No Symptoms HEENT: Reports: No Symptoms Respiratory: Reports: No Symptoms Cardiovascular: Reports: No Symptoms Endocrine: Reports: No Symptoms GI/Abdominal: Reports: No Symptoms : Reports: No Symptoms Musculoskeletal: Reports: No Symptoms Neurological: Reports: Headache ED EXAM, NEURO - Physical Exam Exam: See Below Exam Limited By: No Limitations General Appearance: Alert, No Apparent Distress Ears: Normal External Exam Nose: Normal Inspection Head Exam: Atraumatic, Normocephalic Neck: Normal Inspection Respiratory/Chest: No Respiratory Distress, Lungs Clear, Normal Breath Sounds Cardiovascular: Regular Rate, Rhythm, No Edema, No Murmur GI/Abdominal: Soft, Non-Tender, No Organomegaly, No Mass Neurological: Alert, No Motor/Sensory Deficits, Oriented x 3 Course - Vital Signs Last Recorded V/S: Last Vital Signs Temp 98.4 F 06/25/19 13:10 Pulse 72 06/25/19 13:10 Resp 18 06/25/19 13:10 BP 170/110 H 06/25/19 13:10 Pulse Ox 97 06/25/19 13:10 - Orders/Labs/Meds Orders: Active Orders 24 hr Category Date Time Status Cardiac Monitoring [RC] . DIRECTED Care 06/25/19 13:27 Active Peripheral IV Care [RC] . DIRECTED Care 06/25/19 13:27 Active Ang Head [CT] Stat Exams 06/25/19 15:48 Taken Sodium Chloride 0.9% [Normal Saline] 100 ml Med 06/25/19 16:00 Active IV ASDIRECTED Sodium Chloride 0.9% [Saline Flush] Med 06/25/19 13:27 Active 10 ml FLUSH ASDIRECTED PRN Peripheral IV Insertion Adult [OM.PC] Stat Oth 06/25/19 13:27 Ordered Medication Orders Sodium Chloride (Normal Saline) 100 mls @ 60 mls/hr IV ASDIRECTED DANNA Last Admin: 06/25/19 16:06 Dose: 60 mls/hr Sodium Chloride (Saline Flush) 10 ml FLUSH ASDIRECTED PRN PRN Reason: Keep Vein Open Last Admin: 06/25/19 14:00 Dose: 10 ml Labs: Laboratory Tests 06/25/19 06/25/19 06/25/19 Range/Units 13:35 13:35 13:35 WBC 7.31 (4.23-9.07) K/mm3 RBC 4.80 (4.63-6.08) M/mm3 Hgb 15.2 (13.7-17.5) gm/dl Hct 45.6 (40.1-51.0) % MCV 95.0 H (79.0-92.2) fl MCH 31.7 (25.7-32.2) pg MCHC 33.3 (32.2-35.5) g/dl RDW Std Deviation 46.5 H (35.1-43.9) fL Plt Count 236 (163-337) K/mm3 MPV 9.3 L (9.4-12.3) fl Neut % (Auto) 64.9 (34.0-67.9) % Lymph % (Auto) 22.4 (21.8-53.1) % Bracken % (Auto) 8.6 (5.3-12.2) % Eos % (Auto) 3.7 (0.8-7.0) Baso % (Auto) 0.3 (0.1-1.2) % Neut # (Auto) 4.74 (1.78-5.38) K/mm3 Lymph # (Auto) 1.64 (1.32-3.57) K/mm3 Bracken # (Auto) 0.63 (0.30-0.82) K/mm3 Eos # (Auto) 0.27 (0.04-0.54) K/mm3 Baso # (Auto) 0.02 (0.01-0.08) K/mm3 PT 11.4 (9.7-12.0) SECONDS INR 1.05 APTT 30 (22-31) SECONDS Sodium 144 (136-145) mEq/L Potassium 3.5 (3.5-5.1) mEq/L Chloride 105 (98-107) mEq/L Carbon Dioxide 30 (21-32) mEq/L Anion Gap 12.5 (5-15) BUN 8 (7-18) mg/dL Creatinine 1.0 (0.7-1.3) mg/dL Est Cr Clr Drug Dosing 84.04 mL/min Estimated GFR (MDRD) > 60 (>60) mL/min BUN/Creatinine Ratio 8.0 L (14-18) Glucose 117 H (74-106) mg/dL Calcium 9.1 (8.5-10.1) mg/dL Total Bilirubin 0.3 (0.2-1.0) mg/dL AST 14 L (15-37) U/L ALT 17 (16-63) U/L Alkaline Phosphatase 133 H (46-116) U/L Total Protein 7.7 (6.4-8.2) g/dl Albumin 3.6 (3.4-5.0) g/dl Globulin 4.1 gm/dL Albumin/Globulin Ratio 0.9 L (1-2) Meds: Medications Generic Name Dose Route Start Last Admin Trade Name Freq PRN Reason Stop Dose Admin Sodium Chloride 100 mls @ 60 mls/hr 06/25/19 16:00 06/25/19 16:06 Normal Saline IV 60 mls/hr ASDIRECTED DANNA Administration Sodium Chloride 10 ml 06/25/19 13:27 06/25/19 14:00 Saline Flush FLUSH 10 ml ASDIRECTED PRN Administration Keep Vein Open Discontinued Medications Generic Name Dose Route Start Last Admin Trade Name Freq PRN Reason Stop Dose Admin Iopamidol 100 ml 06/25/19 15:52 06/25/19 16:01 [id number] (76%) IVPUSH 06/25/19 15:53 100 ml ONETIME ONE Administration Sodium Chloride 10 ml 06/25/19 15:52 06/25/19 16:01 Saline Flush FLUSH 06/25/19 15:53 10 ml ONETIME ONE Administration - Re-Assessments/Exams Free Text/Narrative Re-Assessment/Exam: 06/25/19 17:03 I ordered an IV saline lock, labs and a CT of his head. His CBC looks good. His INR was normal. His K was a little low at 3.2. His glucose was slightly elevated at 123. The CT of his head shows pervious craniotomy with associated areas of encephalomalacia. Central atrophy. Chronic sinus findings. No acute intracranial abnormality is identified. 06/25/19 17:09 I am still worried about this headache and I tried to order an MRI but he has a loop recorder and he does not have a card and my radiologist department cannot do the scan without information on the device. I did a CT angio of his brain and it shows suspect a 2mm aneurysm distal right internal carotid artery near its bifurcation. I called [facility] in [place] and I am waiting for Dr Luong to call me back. 06/25/19 18:14 Dr Luong called me back and there is no aneurysm that he can see. He would like the patient to be seen in his neurology clinic. Departure - Departure Time of Disposition: 18:20 Disposition: Home, Self-Care 01 Condition: Good Clinical Impression: Headache Qualifiers: Headache type: unspecified Headache chronicity pattern: acute headache Intractability: not intractable Qualified Code(s): R51 - Headache - Discharge Information *PRESCRIPTION DRUG MONITORING PROGRAM REVIEWED*: No *COPY OF PRESCRIPTION DRUG MONITORING REPORT IN PATIENT JR: No Prescriptions: Hydrocodone/Acetaminophen [Hydrocodon-Acetaminophen 5-325] 1 - 2 each PO Q6HR PRN #20 tablet PRN Reason: Pain Referrals: Conrad Romero MD [Primary Care Provider] - 1 Week Forms: ED Department Discharge Additional Instructions: Take your medication as prescribed. Follow up with the neurology clinic at [facility] in [place]. Take the hydrocodone as needed for pain. Please return if you are worse. Sepsis Event Note - Evaluation Sepsis Screening Result: No Definite Risk - Focused Exam Vital Signs: Vital Signs Temp Pulse Resp BP Pulse Ox 06/25/19 13:10 98.4 F 72 18 170/110 H 97 Date Exam was Performed: 06/25/19 Time Exam was Performed: 18:14 - My Orders Last 24 Hours: My Active Orders 06/25/19 13:27 Cardiac Monitoring [RC] . DIRECTED Peripheral IV Care [RC] . DIRECTED Sodium Chloride 0.9% [Saline Flush] 10 ml FLUSH ASDIRECTED PRN Peripheral IV Insertion Adult [OM.PC] Stat 06/25/19 15:48 Ang Head [CT] Stat 06/25/19 16:00 Sodium Chloride 0.9% [Normal Saline] 100 ml IV ASDIRECTED - Assessment/Plan Last 24 Hours: My Active Orders 06/25/19 13:27 Cardiac Monitoring [RC] . DIRECTED Peripheral IV Care [RC] . DIRECTED Sodium Chloride 0.9% [Saline Flush] 10 ml FLUSH ASDIRECTED PRN Peripheral IV Insertion Adult [OM.PC] Stat 06/25/19 15:48 Ang Head [CT] Stat 06/25/19 16:00 Sodium Chloride 0.9% [Normal Saline] 100 ml IV ASDIRECTED
[2019-06-25] MEDS ORDERED: Iopamidol 755 Mg/ML 100 ML Bottle IVPUSH ONE (15:52)
[2019-06-25] MEDS ORDERED: Sodium Chloride 0.9% 10 ML Syringe FLUSH ONE (15:52)
[2019-06-25] MEDS ORDERED: Sodium Chloride 0.9% 100 ML IV SCH (16:00)
--- NOTE | 2019-06-26 10:38 | CT ---
CT angiogram of brain Technique: Multiple axial sections through the brain were obtained. Intravenous contrast was utilized during the arterial phase. Multiple MIP images were obtained in multiple projections. Comparison: Previous head CT study performed earlier on the same day (1:34 PM). No prior CT angiogram of the brain is available. Findings: Two distal patent vertebral arteries are seen. Basilar artery and posterior cerebral arteries appear to be patent. Distal internal carotid arteries appear to be patent. Evaluation is somewhat limited due to artifact from the skull base. Flow into both middle cerebral arteries is noted. Small area of outpouching of the right distal internal carotid artery is seen prior to its bifurcation. Difficult to exclude a small approximate 2 mm aneurysm. No other discrete findings are seen to suggest aneurysm. Distal left internal carotid artery stent again noted. Impression: 1. Difficult to exclude small 2 mm aneurysm within the distal right internal carotid artery. 2. No focal areas of occlusion or stenosis are seen. Diagnostic code #3 This report was dictated in [place] Standard Time I agree with preliminary report issued by [facility] ([facility] report finalized on 06/25/19, 5:31 PM Central Time)
== END 2019-06-25 18:30 | disposition home or self-care (01) ==
LOC: JD.ED 13:02
DX: R51 Headache (principal); I10 Essential (primary) hypertension; F32.9 Major depressive disorder, single episode, unspecified; Z86.73 Personal history of transient ischemic attack (TIA), and cerebral infarction without residual deficits; F17.210 Nicotine dependence, cigarettes, uncomplicated; Z88.8 Allergy status to other drugs, medicaments and biological substances; Z91.030 Bee allergy status; Z79.82 Long term (current) use of aspirin; Z79.899 Other long term (current) drug therapy
CPT/HCPCS: 36415; 70450; 70450-26; 70496; 70496-26; 80053; 85025; 85610; 85730; 96360; 96361; 99283; 99284-25; J7050; Q9967

== ENCOUNTER 2023-07-13 20:55 | Emergency (ER) | payer MEDICARE, MEDICAID | END 2023-07-13 23:15 | disposition home or self-care (01) | LOC: JD.ED 20:55 | DX: R11.2 Nausea with vomiting, unspecified (principal); I10 Essential (primary) hypertension; Z79.82 Long term (current) use of aspirin; Z79.899 Other long term (current) drug therapy; Z91.030 Bee allergy status | CPT/HCPCS: 70450; 70450-26; 99283; 99284 ==

== ENCOUNTER 2024-08-09 08:06 | Day surgery (SDC) | payer MEDICARE, MEDICAID ==
[~2024-08-09 08:06] MED LIST: Sodium Chloride 0.9% 10 ML Syringe FLUSH PRN; Sodium Chloride 0.9% 10 ML Syringe FLUSH SCH
[2024-08-09] MEDS: Lactated Ringers 1,000 ML IV SCH (08:30)
[2024-08-09] MEDS ORDERED: Ondansetron 4 MG/2 ML SDV IVPUSH PRN (09:23)
[2024-08-09] MEDS ORDERED: Propofol 200 MG/20 ML SDV ONE ×2 (09:25→09:29)
== END 2024-08-09 10:59 | disposition home or self-care (01) ==
LOC: JD.SDS 08:06
PROVIDERS: ATTEND Surgery
DX: Z12.11 Encounter for screening for malignant neoplasm of colon (principal); D12.2 Benign neoplasm of ascending colon; K57.30 Diverticulosis of large intestine without perforation or abscess without bleeding; I10 Essential (primary) hypertension; E78.5 Hyperlipidemia, unspecified; F32.A Depression, unspecified; E03.9 Hypothyroidism, unspecified; F17.200 Nicotine dependence, unspecified, uncomplicated; Z79.82 Long term (current) use of aspirin; Z79.890 Hormone replacement therapy; Z79.899 Other long term (current) drug therapy; Z91.030 Bee allergy status
CPT/HCPCS: 00811; J2704; J7120

== ENCOUNTER 2024-10-18 09:53 | Day surgery (SDC) | payer MEDICARE, MEDICAID ==
[2024-10-18] MEDS: Lactated Ringers 1,000 ML IV SCH (10:20)
[2024-10-18] MEDS ORDERED: Propofol 200 MG/20 ML SDV ONE ×2 (11:35→12:03)
[2024-10-18] MEDS ORDERED: fentaNYL 100 MCG/2 ML SDV ONE (11:36)
[2024-10-18] MEDS ORDERED: Lidocaine 2% 5 ML SDV ONE (11:52)
[2024-10-18] MEDS: Lidocaine 1% with EPINEPHrine 1:100,000 20 ML MDV ONE (12:03)
[2024-10-18] MEDS: Bupivacaine 0.5% 10 ML SDV ONE (12:03)
[2024-10-18] MEDS: EPINEPHrine 1 MG/ML SDV ONE (12:03)
== END 2024-10-18 13:05 | disposition home or self-care (01) ==
LOC: JD.SDS 09:53
PROVIDERS: ATTEND Surgery
DX: D17.22 Benign lipomatous neoplasm of skin and subcutaneous tissue of left arm (principal); F17.210 Nicotine dependence, cigarettes, uncomplicated; I10 Essential (primary) hypertension; E03.9 Hypothyroidism, unspecified; Z79.82 Long term (current) use of aspirin; Z91.030 Bee allergy status; Z79.899 Other long term (current) drug therapy; Z79.890 Hormone replacement therapy
CPT/HCPCS: 23071; J0171; J0665; J2003; J2004; J2704; J3010; J7120; 01610